=== PATIENT | female | born 1995 | race Caucasian/White ===

== ENCOUNTER 2016-10-12 00:42 | Emergency (ER) | payer OTHER ==
[2016-10-12] MEDS ORDERED: Morphine INJ* 2 MG/ML 1 ML SYRINGE IV ONE ×2 (01:35→02:38)
[2016-10-12] MEDS ORDERED: Morphine INJ* 4 MG/ML 1 ML SYRINGE IM ONE (02:24)
--- NOTE | 2016-10-12 02:36 | ED ---
Adult Trauma - HPI Summary HPI Summary: Patient presents s/p fall onto face and FOOSH injury. She states she tripped and fell onto the concrete and has been unable to open her jaw. She notes to pain in the TMJ's and to her chin and left wrist. ETOH intox. Patient is limited with history. Otherwise healthy. Denies other pain or injuries. Denies LOC. - History of Current Complaint Chief Complaint: EDFacialInjury Stated Complaint: JAW INJURY Time Seen by Provider: 10/12/16 01:10 Hx Obtained From: Patient ?: No Mechanism of Injury: Direct Blow Ambulatory at the Scene: Yes Loss of Consciousness: no loss of consciousness Force: Medium Restraints: None Onset/Duration: Started Hours Ago Onset of Pain: Immediate Onset Severity: Severe Current Severity: Severe Pain Intensity: 10 Pain Scale Used: 0-10 Numeric Location: Head Character: Aching, Pressure Aggravating Factor(s): Nothing Alleviating Factor(s): Nothing Associated Signs & Symptoms: Positive: Negative - Allergy/Home Medications Allergies/Adverse Reactions: Allergies Allergy/AdvReac Type Severity Reaction Status Date / Time No Known Allergies Allergy Verified 10/12/16 00:48 PMH/Surg Hx/FS Hx/Imm Hx Previously Healthy: Yes Infectious Disease History: No Infectious Disease History: Denies: Traveled Outside the [place] in Last 30 Days - Social History Occupation: Unemployed Lives: With Family Alcohol Use: Occasionally Hx Substance Use: Yes Substance Use Type: Reports: Marijuana Hx Tobacco Use: No Smoking Status (MU): Never Smoked Tobacco Do You Chew or Dip Tobacco: No Have You Chewed or Dipped Tobacco in the LAST YEAR: No Review of Systems Constitutional: Negative Eyes: Negative Positive: Other - jaw pain Cardiovascular: Negative Respiratory: Negative Positive: no symptoms reported, pain Positive: Arthralgia - jaw pain Skin: Negative Neurological: Negative Psychological: Normal All Other Systems Reviewed And Are Negative: Yes Physical Exam Triage Information Reviewed: Yes Vital Signs On Initial Exam: Initial Vitals Temp Pulse Resp BP Pulse Ox 98.1 F 78 18 120/71 99 10/12/16 00:45 10/12/16 00:45 10/12/16 00:45 10/12/16 00:45 10/12/16 00:45 Vital Signs Reviewed: Yes Appearance: Positive: Pain Distress, Signs of Trauma Skin: Positive: Warm, Skin Color Reflects Adequate Perfusion, Other - laceration to the chin Head/Face: Positive: Temporal Artery Tenderness, TMJ Tenderness, Other - pain and deformity noted over bilateral TMJ ENT: Positive: TMs normal Neck: Positive: Supple, No Lymphadenopathy Respiratory/Lung Sounds: Positive: Clear to Auscultation, Breath Sounds Present Cardiovascular: Positive: Normal, Pulses are Symmetrical in both Upper and Lower Extremities Musculoskeletal: Positive: Normal, Strength/ROM Intact Neurological: Positive: Sensory/Motor Intact, Alert, Oriented to Person Place, Time, Speech Normal Psychiatric: Positive: Normal AVPU Assessment: Alert - Charlie Coma Scale Best Eye Response: 4 - Spontaneous Best Motor Response: 6 - Obeys Commands Best Verbal Response: 5 - Oriented Coma Scale Total: 15 Diagnostics - Vital Signs Vital Signs Temp Pulse Resp BP Pulse Ox 10/12/16 01:39 16 10/12/16 00:45 98.1 F 78 18 120/71 99 - Laboratory Lab Statement: Any lab studies that have been ordered have been reviewed, and results considered in the medical decision making process. Adult Trauma Course/Dx - Course Course Of Treatment: Patient sent to CT maxillofacial and wrist xray. 8mg morphine given total. Awaiting xray results. Signed out to DR. Mata at 2: 45am. - Diagnoses Differential Diagnosis/HQI/PQRI: Positive: Contusion(s), Fracture, Dislocation Provider Diagnoses: Mandibular fracture Discharge - Discharge Plan Condition: Stable Disposition: HOME Discharge Disposition Comment: signed out to dr. mata at 2:30am Prescriptions: Chlorhexidine MW 0.12% 473ML* [Peridex Mouth Wash 0.12%] 0.12 % MT Q4H #200 [place] Clindamycin CAP* [Cleocin 150 MG CAP*] 300 mg PO Q6H #20 cap Patient Education Materials: Clindamycin (By mouth), Chlorhexidine (Into the mouth), Jaw Fracture in Adults (ED), Soft Diet (ED) Referrals: Wilder Morel [Other] No Primary Care Phys,NOPCP [Primary Care Provider] -
[2016-10-12] MEDS ORDERED: Clindamycin 300 MG IVPREMIX(* 300 MG/50 ML SDV IVPB ONE (03:02)
[2016-10-12] MEDS ORDERED: Dexamethasone IV* 4 MG/ML 5 ML VIAL (20 MG) IVPB ONE (03:02)
[2016-10-12] MEDS ORDERED: oxyCODONE/Acetamin 5/325 MG* TAB PO ONE (04:09)
[2016-10-12 04:22] VITALS: BP 125/67
--- NOTE | 2016-10-12 07:52 | RAD ---
HISTORY: Fall on outstretched hand, left wrist COMPARISONS: None VIEWS: 3, Frontal, lateral, and oblique views of the left wrist FINDINGS: BONE DENSITY: Normal. BONES: There is no displaced fracture. JOINTS: There is no arthropathy. ALIGNMENT: There is no dislocation. SOFT TISSUES: Unremarkable. OTHER FINDINGS: None. IMPRESSION: NO ACUTE OSSEOUS INJURY. IF SYMPTOMS PERSIST, RECOMMEND REPEAT IMAGING.
--- NOTE | 2016-10-12 08:01 | RAD ---
indication: Jaw pain after a fall with a laceration to the chin COMPARISON: None A CT scan of the maxillofacial bones was performed without intravenous contrast enhancement. Contiguous axial sections were obtained from the level of the hyoid bone to just above the frontal sinuses. Findings: Bones: Depicted best in the coronal plane images there are bilateral fractures of the neck of the mandible (coronal image 51 of 90). Bilaterally there is lateral angulation of the fracture sites. More inferiorly, at the right of midline of the mandibular symphysis there is a sagittally oriented fracture line (image 33 of 90 on the coronal plane images and 10 on the axial images). At the right of midline there is a lower tooth gap which could be related to traumatic loss in this clinical case. The orbital rim is intact. Bilaterally the nasal bones are intact. The zygomatic arch is intact. The pterygoid plates are intact. Orbits: The globes are round. The optic nerves are symmetric. The extraocular musculature is normal. There is no post septal or intraconal inflammatory change. There is no retrobulbar hematoma. Cervical spine: The visualized portions of the cervical spine exhibit nonspecific straightening. There is no definite fracture or dislocation. There is no prevertebral soft tissue swelling. Paranasal Sinuses: The paranasal sinuses are clear. Visualized brain: The limited views of the brain do not demonstrate any acute abnormality or extra-axial hemorrhage. IMPRESSION: Fractures of the bilateral mandibular necks as well as the right of midline anterior body of the mandible as described above. The patient appears a missing a right of midline lower tooth. Please correlate to dental examination.
== END 2016-10-12 04:24 | disposition home or self-care (01) ==
LOC: ED 00:42
DX: S02.609A Fracture of mandible, unspecified, initial encounter for closed fracture (principal); R68.84 Jaw pain; W19.XXXA Unspecified fall, initial encounter; Y93.9 Activity, unspecified; Y92.89 Other specified places as the place of occurrence of the external cause
CPT/HCPCS: 70486; 96372; 96374; 96375; 99285; A9270-GY; J2270